=== PATIENT | female | born 1960 | race Caucasian/White ===

== ENCOUNTER → 2016-03-15 08:33 | Outpatient (CLI) | payer OTHER ==
[2012-05-16 08:38] VITALS: BMI 30.2
== END | disposition home or self-care (01) ==
LOC: D.CT 08:33
DX: R31.9 Hematuria, unspecified (principal); R10.9 Unspecified abdominal pain

== ENCOUNTER → 2016-04-28 08:09 | Outpatient (CLI) | payer OTHER ==
[2012-05-16 08:38] VITALS: BMI 30.2
== END | disposition home or self-care (01) ==
LOC: D.US 08:09
DX: R10.11 Right upper quadrant pain (principal)

== ENCOUNTER → 2016-05-02 19:00 | Outpatient (CLI) | payer OTHER ==
[2012-05-16 08:38] VITALS: BMI 30.2
== END | disposition home or self-care (01) ==
LOC: D.LABREF 19:00
DX: R82.99 Other abnormal findings in urine (principal)

== ENCOUNTER → 2016-11-08 12:26 | Outpatient (CLI) | payer OTHER ==
[2012-05-16 08:38] VITALS: BMI 30.2
== END | disposition home or self-care (01) ==
LOC: D.MAMMO 11:45
DX: Z12.31 Encounter for screening mammogram for malignant neoplasm of breast (principal)

== ENCOUNTER → 2019-01-03 08:27 | Outpatient (CLI) | payer OTHER ==
[2012-05-16 08:38] VITALS: BMI 30.2
== END | disposition home or self-care (01) ==
LOC: D.CT 08:27
PROVIDERS: ATTEND Nurse Practitioner
DX: N28.1 Cyst of kidney, acquired (principal); R31.21 Asymptomatic microscopic hematuria

== ENCOUNTER → 2019-11-28 20:41 | Outpatient (CLI) | payer OTHER ==
[2012-05-16 08:38] VITALS: BMI 30.2
== END | disposition home or self-care (01) ==
LOC: D.MAMMO 09:30
PROVIDERS: ATTEND Family Medicine
DX: Z12.31 Encounter for screening mammogram for malignant neoplasm of breast (principal)